=== PATIENT | male | born 1990 | race Caucasian/White ===

== ENCOUNTER 2019-10-29 11:38 | Emergency (ER) | payer MEDICAID ==
[2019-10-29] MEDS ORDERED: Ondansetron 4 MG/2 ML SDV IVPUSH ONE (11:57)
[2019-10-29] MEDS ORDERED: HYDROmorphone 0.5 MG/0.5 ML Syringe IVPUSH ONE (11:58)
--- NOTE | 2019-10-29 11:59 | EDM.PDOC ---
ED HPI GENERAL MEDICAL PROBLEM - General Chief Complaint: Flank Pain Stated Complaint: LOWER BACK PAIN AND HEADACHE Time Seen by Provider: 10/29/19 11:59 Source of Information: Reports: Patient History Limitations: Reports: No Limitations - History of Present Illness INITIAL COMMENTS - FREE TEXT/NARRATIVE: pt arrived with pain in the rt flank area. He has no dyuria. He has a temp of 102. He has a bad headache and he has alot of body aches. Onset: Other ( symptoms started last nite. ) Duration: Hour(s): Location: Reports: Head, Back, Generalized Associated Symptoms: Reports: Headaches, Malaise, Weakness headache and low backpain Pain Score (Numeric/FACES): 9 - Related Data Allergies Allergy/AdvReac Type Severity Reaction Status Date / Time amoxicillin Allergy Hives Verified 10/29/19 12:00 Home Meds: Home Meds NK [No Known Home Meds] 10/29/19 [History] ED ROS GENERAL - Review of Systems Review Of Systems: See Below Constitutional: Reports: Fever, Chills, Malaise HEENT: Reports: No Symptoms Respiratory: Reports: No Symptoms Cardiovascular: Reports: No Symptoms Endocrine: Reports: No Symptoms GI/Abdominal: Reports: No Symptoms, Other (pt does have pain in the rt flank area. ) : Reports: No Symptoms, Flank Pain Musculoskeletal: Reports: Other ( generalized body pain) Skin: Reports: No Symptoms Neurological: Reports: No Symptoms Psychiatric: Reports: No Symptoms ED EXAM, GI/ABD - Physical Exam Exam: See Below Text/Narrative:: pt arrived with pain in the rt flank and generalized body pain. He does have a severe headache. He has a temp of 102. Exam Limited By: No Limitations General Appearance: Alert, Anxious, Moderate Distress, Other (pupils are equal and reactive. ) Ears: Normal TMs Nose: Normal Inspection Throat/Mouth: Normal Inspection Neck: Normal Inspection Respiratory/Chest: No Respiratory Distress Cardiovascular: Regular Rate, Rhythm GI/Abdominal Exam: Soft, Non-Tender (Male) Exam: Other (pt is tender in the rt flank area. ) Rectal (Males) Exam: Deferred Back Exam: CVA Tenderness (R) Extremities: Normal Inspection Neurological: Alert, Oriented, Normal Cognition Course - Vital Signs Last Recorded V/S: Last Vital Signs Temp 38.0 C 02/28/20 12:32 Pulse 109 H 10/29/19 12:28 Resp 18 10/29/19 12:28 BP 115/70 10/29/19 12:28 Pulse Ox 96 10/29/19 12:28 - Orders/Labs/Meds Orders: Active Orders 24 hr Category Date Time Status Sodium Chloride 0.9% [Normal Saline] 1,000 ml Med 10/29/19 12:00 Active IV ASDIRECTED Sodium Chloride 0.9% [Normal Saline] 1,000 ml Med 10/29/19 12:45 Active IV ASDIRECTED Medication Orders Sodium Chloride (Normal Saline) 1,000 mls @ 999 mls/hr IV ASDIRECTED JESSA Last Admin: 10/29/19 12:22 Dose: 999 mls/hr Sodium Chloride (Normal Saline) 1,000 mls @ 999 mls/hr IV ASDIRECTED JESSA Last Admin: 10/29/19 13:35 Dose: 999 mls/hr Labs: Laboratory Tests 10/29/19 10/29/19 10/29/19 Range/Units 11:57 12:00 12:00 WBC 6.8 (4.5-11.0) K/uL RBC 4.97 (4.30-5.90) M/uL Hgb 14.5 (12.0-15.0) g/dL Hct 42.1 (40.0-54.0) % MCV 85 (80-98) fL MCH 29 (27-31) pg MCHC 34 (32-36) % Plt Count 208 (150-400) K/uL Neut % (Auto) 84 H (36-66) % Lymph % (Auto) 5 L (24-44) % Granite % (Auto) 11 H (2-6) % Eos % (Auto) 0 L (2-4) % Baso % (Auto) 0 (0-1) % Sodium 137 L (140-148) mmol/L Potassium 4.0 (3.6-5.2) mmol/L Chloride 99 L (100-108) mmol/L Carbon Dioxide 25 (21-32) mmol/L Anion Gap 17.0 H (5.0-14.0) mmol/L BUN 10 (7-18) mg/dL Creatinine 1.1 (0.8-1.3) mg/dL Est Cr Clr Drug Dosing 96.73 mL/min Estimated GFR (MDRD) > 60 (>60) Glucose 105 (74-106) mg/dL Calcium 8.6 (8.5-10.1) mg/dL Total Bilirubin 0.5 (0.2-1.0) mg/dL AST 25 (15-37) U/L ALT 56 (12-78) U/L Alkaline Phosphatase 77 (46-116) U/L Total Protein 8.2 (6.4-8.2) g/dL Albumin 4.5 (3.4-5.0) g/dL Globulin 3.7 H (2.3-3.5) g/dL Albumin/Globulin Ratio 1.2 (1.2-2.2) Urine Color Yellow (YELLOW) Urine Appearance Clear (CLEAR) Urine pH 7.0 (5.0-8.0) Ur Specific Brinkley 1.025 (1.008-1.030) Urine Protein Trace H (NEGATIVE) mg/dL Urine Glucose (UA) Negative (NEGATIVE) mg/dL Urine Ketones 40 H (NEGATIVE) mg/dL Urine Occult Blood Negative (NEGATIVE) Urine Nitrite Negative (NEGATIVE) Urine Bilirubin Negative (NEGATIVE) Urine Urobilinogen 0.2 (0.2-1.0) EU/dL Ur Leukocyte Esterase Negative (NEGATIVE) Urine RBC 0-5 (0-5) Urine WBC 0-5 (0-5) Ur Epithelial Cells Few Amorphous Sediment Not seen Urine Bacteria Few Urine Mucus Not seen Meds: Medications Generic Name Dose Route Start Last Admin Trade Name Freq PRN Reason Stop Dose Admin Sodium Chloride 1,000 mls @ 999 mls/hr 10/29/19 12:00 10/29/19 12:22 Normal Saline IV 999 mls/hr ASDIRECTED JESSA Administration Sodium Chloride 1,000 mls @ 999 mls/hr 10/29/19 12:45 10/29/19 13:35 Normal Saline IV 999 mls/hr ASDIRECTED JESSA Administration Discontinued Medications Generic Name Dose Route Start Last Admin Trade Name Freq PRN Reason Stop Dose Admin Hydromorphone HCl 0.5 mg 10/29/19 11:58 10/29/19 12:20 Dilaudid IVPUSH 10/29/19 11:59 0.5 mg ONETIME ONE Administration Ibuprofen 600 mg 10/29/19 12:27 10/29/19 12:32 Motrin PO 10/29/19 12:28 600 mg ONETIME ONE Administration Ketorolac Tromethamine 30 mg 10/29/19 13:44 10/29/19 13:54 Toradol IVPUSH 10/29/19 13:45 30 mg ONETIME ONE Administration Ondansetron HCl 4 mg 10/29/19 11:57 10/29/19 12:18 Zofran IVPUSH 10/29/19 11:58 4 mg ONETIME ONE Administration - Re-Assessments/Exams Free Text/Narrative Re-Assessment/Exam: 10/29/19 14:24 pt was positive for influ b. He was given 2 liters of fluid. He had torodol 30 mg amd dilaudid .5 iv. he has complete relief of his headachr. He is feeling better. He has refused the tamaflu. Departure - Departure Time of Disposition: 14:25 Disposition: Home, Self-Care 01 Condition: Fair Clinical Impression: Influenza B - Discharge Information Referrals: PCP,None [Primary Care Provider] - Forms: ED Department Discharge Care Plan Goals: push fluids, tylenol and motrin for body aches and fever, pt refused the tamaflu. Sepsis Event Note - Evaluation Sepsis Screening Result: Possible Sepsis Risk - Focused Exam Vital Signs: Vital Signs Temp Temp Pulse Resp BP Pulse Ox 10/29/19 12:32 38.0 C 10/29/19 12:28 109 H 18 115/70 96 10/29/19 11:49 38.0 C 125 H 16 120/72 96 Date Exam was Performed: 10/29/19 Time Exam was Performed: 14:24 - My Orders Last 24 Hours: My Active Orders 10/29/19 12:00 Sodium Chloride 0.9% [Normal Saline] 1,000 ml IV ASDIRECTED 10/29/19 12:45 Sodium Chloride 0.9% [Normal Saline] 1,000 ml IV ASDIRECTED - Assessment/Plan Last 24 Hours: My Active Orders 10/29/19 12:00 Sodium Chloride 0.9% [Normal Saline] 1,000 ml IV ASDIRECTED 10/29/19 12:45 Sodium Chloride 0.9% [Normal Saline] 1,000 ml IV ASDIRECTED
[2019-10-29] MEDS ORDERED: Sodium Chloride 0.9% 1,000 ML IV SCH ×2 (12:00→12:45)
[2019-10-29] MEDS ORDERED: Ibuprofen 600 MG Tab PO ONE (12:27)
[2019-10-29] MEDS ORDERED: Ketorolac 30 MG/ML SDV IVPUSH ONE (13:44)
== END 2019-10-29 14:29 | disposition home or self-care (01) ==
LOC: JP.ED 11:38
DX: J10.1 Influenza due to other identified influenza virus with other respiratory manifestations (principal); R10.9 Unspecified abdominal pain; R51 Headache; Z88.1 Allergy status to other antibiotic agents
CPT/HCPCS: 36415; 80053; 81001; 85025; 87804; 96361; 96374; 96375; 99284; A9270; J1170; J1885; J2405; J7030

== ENCOUNTER 2021-12-05 22:17 | Emergency (ER) | payer MEDICAID | END 2021-12-05 23:53 | disposition home or self-care (01) | LOC: JP.ED 22:17 | DX: R55 Syncope and collapse (principal); F41.0 Panic disorder [episodic paroxysmal anxiety]; R00.0 Tachycardia, unspecified; K21.9 Gastro-esophageal reflux disease without esophagitis; R13.10 Dysphagia, unspecified; Z88.0 Allergy status to penicillin | CPT/HCPCS: 36415; 80053; 84443; 84484; 85025; 93005; 93010; 99283; 99285-25 ==